=== PATIENT | male | born 1955 | race American Indian/Alaskan Native ===

== ENCOUNTER 2021-07-16 09:55 | Day surgery (SDC) | payer MEDICARE ==
[~2021-07-16 09:55] MED LIST: BUPIVACAINE/PF (0.5%) 5 MG/1 ML 30 ML VIAL INFILTRATI ONE; LIDOCAINE (1%) 10 MG/1 ML VIAL 20 ML MDV ONE
[2021-07-16 10:43] VITALS: BP 105/68
--- NOTE | 2021-07-16 12:01 | Ultrasound Report ---
Transrectal Ultrasound HISTORY: Prostate biopsy in OR, elev PSA. TECHNIQUE: Grayscale imaging performed. IMPRESSION: Ultrasound guidance provided for transrectal prostate biopsy. Please refer to the operati ve note for complete details. Prostate volume was 29 mL. Signer Name: Arnoldo Guzman MD Signed: 07/16/2021 11:56 AM Workstation Name: [id number]
--- NOTE | 2021-08-02 18:00 | Operative Report ---
DATE OF SURGERY: 07/16/2021 PREOPERATIVE DIAGNOSIS: Elevated PSA. POSTOPERATIVE DIAGNOSIS: Elevated PSA. PROCEDURE: Transrectal ultrasound-guided prostate needle biopsy. SURGEON: Noah Soto MD ANESTHESIA: Local. ESTIMATED BLOOD LOSS: 10 mL. SPECIMENS: Prostate needle biopsies. DRAINS: None. COMPLICATIONS: None. INDICATIONS FOR PROCEDURE: The patient is a 66-year-old man with an elevated PSA. DESCRIPTION OF PROCEDURE IN DETAIL: The patient was positioned and prepared in the dorsal lithotomy position. The procedure was done under local. An ultrasound probe was placed in the rectum and measurements of the prostate were taken. Once complete, the 12 core needle biopsies of the prostate were taken in the usual manner. The patient tolerated the procedure well. The probe was removed upon completion of the last biopsy. The patient was then transported to the recovery room in stable condition. He will return to the office in 7-10 days to review his pathology results. TID: [id number] RECEIPT: [id number] DJC/TAB
== END 2021-07-16 09:56 | disposition home or self-care (01) ==
LOC: OR 09:55
PROVIDERS: ATTEND Urology
DX: R97.20 Elevated prostate specific antigen [PSA] (principal); Z87.440 Personal history of urinary (tract) infections; Z79.899 Other long term (current) drug therapy; Z88.0 Allergy status to penicillin; Z98.890 Other specified postprocedural states
CPT/HCPCS: 76872; 88305; J3490